=== PATIENT | female | born 1995 | race Caucasian/White ===

== ENCOUNTER 2016-10-30 | Emergency (ER) | payer OTHER | END 2016-10-30 13:30 | disposition home or self-care (01) | DX: J06.9 Acute upper respiratory infection, unspecified (principal) ==

== ENCOUNTER 2017-01-07 20:29 | Emergency (ER) | payer OTHER ==
[2017-01-07] MEDS ORDERED: ONDANSETRON ODT 4 MG TABLET TL STA (21:33)
[2017-01-07] MEDS ORDERED: PROMETHAZINE 25 MG TABLET PO STA (21:33)
[2017-01-07] MEDS ORDERED: ONDANSETRON ODT 4 MG TABLET ONE (21:35)
[2017-01-07] MEDS ORDERED: PROMETHAZINE 25 MG TABLET ONE (21:35)
[2017-01-07] MEDS ORDERED: ONDANSETRON ODT 4 MG Prepack 2 TL STA (21:59)
[2017-01-07] MEDS ORDERED: ONDANSETRON ODT 4 MG Prepack 2 TL ONE (22:04)
== END 2017-01-07 22:05 | disposition home or self-care (01) ==
DX: R11.2 Nausea with vomiting, unspecified (principal); R03.0 Elevated blood-pressure reading, without diagnosis of hypertension
CPT/HCPCS: 36415; 80053; 81003; 81025; 83690; 99283; 99284; Q0162; Q0169

== ENCOUNTER 2017-02-22 23:09 | Emergency (ER) | payer OTHER ==
[2017-02-22 23:19] VITALS: BP 135/77
--- NOTE | 2017-02-22 23:57 | ED Physician Documentation ---
History of Present Illness - Stated complaint Stated Complaint: NEED RING REMOVED - Chief complaint Chief Complaint: Ext Problem - History obtained from History obtained from: Patient - History of Present Illness Timing: Today Pain level max: 8 Pain level now: 8 Improved by: nothing Worsened by: nothing - Additonal information Additional information: Patient states that she stuck her ring on her finger that is too small and now cannot get it off. Has tried multiple things at home. Now the finger is too swollen to remove the ring. Review of Systems : denies: Now EGA Neurologic: denies: Focal weakness, Numbness PD PAST MEDICAL HISTORY - Past Medical History Cardiovascular: None Respiratory: None Neuro: None Endocrine/Autoimmune: None Psych: Depression Musculoskeletal: Fibromyalgia, Scoliosis Other Past Medical History: inflammatory arthritis - Past Surgical History Past Surgical History: No - Present Medications Home Medications: Ambulatory Orders Medication Instructions Recorded Confirmed Duloxetine HCl [Cymbalta] 1 mg PO DAILY 01/07/17 02/22/17 Etonogestrel [Nexplanon] 1 mg [id number] DAILY 01/07/17 02/22/17 Nabumetone 500 mg PO DAILY 01/07/17 02/22/17 Methocarbamol 500 mg PO .FREQ PRN 02/22/17 02/22/17 - Allergies Allergies/Adverse Reactions: Allergies Allergy/AdvReac Type Severity Reaction Status Date / Time adhesive AdvReac Rash Verified 02/22/17 23:19 - Social History Does the pt smoke?: No Smoking Status: Never smoker Does the pt drink ETOH?: No Does the pt have substance abuse?: Yes Substance Use and Type: Marijuana - Immunizations Immunizations are current?: Yes - POLST Patient has POLST: No PD ED PE NORMAL - Vitals Vital signs reviewed: Yes - General General: Alert and oriented X 3, No acute distress - Derm Derm: Warm and dry - Extremities Extremities: Other (Ring stuck on R 4th digit. Very edematous, TTP. NVI.) - Neuro Neuro: Alert and oriented X 3 Results - Vitals Vitals: Vital Signs - 24 hr 02/22/17 23:16 Temperature 36.5 C Heart Rate 86 Respiratory 16 Rate Blood Pressure 135/77 H O2 Saturation 99 Oxygen O2 Source Room air Procedures - General procedure General procedure: Ring removal - Attempted removal with tourniquet, sliding under the ring, but patient could not tolerate this. Therefore the ring was removed from the finger using a ring cutter. Tolerated well. Ring was given to the patient. PD MEDICAL DECISION MAKING - ED course Complexity details: considered differential, d/w patient ED course: 21-year-old female with a ring stuck to the right fourth digit. This was removed with a ring cutter. Tolerated well. We will have her follow-up with her doctor as needed. We will have her take the ring to a jeweler for repair. Patient counseled regarding signs and symptoms for which I believe and urgent re -evaluation would be necessary. Patient with good understanding of and agreement to plan and is comfortable going home at this time This document was made in part using voice recognition software. While efforts are made to proofread this document, sound alike and grammatical errors may occur. Departure - Departure Disposition: 01 Home, Self Care Clinical Impression: Finger swelling Condition: Good Comments: A jeweler will be able to fix your ring and resize it appropriately for you. Discharge Date/Time: 02/23/17 00:02
== END 2017-02-23 00:02 | disposition home or self-care (01) ==
LOC: ED 23:09
DX: M79.89 Other specified soft tissue disorders (principal); S60.444A External constriction of right ring finger, initial encounter; W49.04XA Ring or other jewelry causing external constriction, initial encounter
CPT/HCPCS: 99282; 99283

== ENCOUNTER 2017-04-22 15:59 | Emergency (ER) | payer OTHER ==
--- NOTE | 2017-04-22 17:41 | ED Physician Documentation ---
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 She feels it is in slightly higher position, so it moved when struck. Hurting now locally. No pain down arm nor numbness.) Where injury occurred: Work Timing - onset: Today Timing - details: Abrupt onset, Still present Worsened by: Moving, Palpating Associated symptoms: No: Weakness, Numbness, Swelling Similar symptoms before: Has not had sx before Recently seen: Not recently seen (has had the implant for 3 years I believe she said.) Review of Systems Constitutional: denies: Fever, Chills Skin: denies: Abrasion (s), Laceration (s) Neurologic: denies: Focal weakness, Numbness PD PAST MEDICAL HISTORY - Past Medical History Cardiovascular: None Respiratory: None Neuro: None Endocrine/Autoimmune: None Psych: Depression Musculoskeletal: Fibromyalgia, Scoliosis - Past Surgical History Past Surgical History: No - Present Medications Home Medications: Ambulatory Orders Medication Instructions Recorded Confirmed Duloxetine HCl [Cymbalta] 1 mg PO DAILY 01/07/17 02/22/17 Etonogestrel [Nexplanon] 1 mg [id number] DAILY 01/07/17 02/22/17 Nabumetone 500 mg PO DAILY 01/07/17 02/22/17 Methocarbamol 500 mg PO .FREQ PRN 02/22/17 02/22/17 HYDROcod/ACETAM 5/325 [[place] 5/325] 1 tab PO Q6H PRN #10 tablet 04/22/17 - Allergies Allergies/Adverse Reactions: Allergies Allergy/AdvReac Type Severity Reaction Status Date / Time adhesive AdvReac Rash Verified 04/22/17 16:09 - Social History Does the pt smoke?: No Smoking Status: Never smoker Does the pt drink ETOH?: No Does the pt have substance abuse?: Yes - Immunizations Immunizations are current?: Yes - POLST Patient has POLST: No PD ED PE NORMAL - Vitals Vital signs reviewed: Yes - General General: Alert and oriented X 3, Well developed/nourished - Derm Derm: Normal color, Warm and dry - Extremities Extremities: Other (right upper arm medial to biceps with local tenderness. The implant is palpable under the skin and feels like single unit. ) - Neuro Neuro: Alert and oriented X 3, No motor deficit, No sensory deficit Results - Vitals Vitals: Oxygen O2 Source Room air PD MEDICAL DECISION MAKING - ED course Complexity details: reviewed results (of what I could tell by U/S bedside, the implant looked to be in one piece. ), considered differential, d/w patient Departure - Departure Disposition: 01 Home, Self Care Clinical Impression: Contusion of arm, right Qualifiers: Encounter type: initial encounter Qualified Code(s): S40.021A - Contusion of right upper arm, initial encounter Condition: Stable Record reviewed to determine appropriate education?: Yes Follow-Up: Talha Garces MD [Primary Care Provider] - Prescriptions: HYDROcod/ACETAM 5/325 [[place] 5/325] 1 tab PO Q6H PRN #10 tablet PRN Reason: Pain Comments: Ibuprofen or naproxen 2-3 times a day for the next few days. Add Tylenol or hydrocodone if needed for pain. Limited use of the right arm for a few days. See if everything just comes down and does not hurt in which case the Nexplanon implant can just stay. If it continues to hurt with motion, then it may need to get removed and follow-up with your primary who inserted it. Forms: Activity restrictions Discharge Date/Time: 04/22/17 18:59
[2017-04-22] MEDS ORDERED: HYDROcod/ACETAM 5/325 MG TABLET PO STA (18:30)
[2017-04-22] MEDS ORDERED: HYDROcod/ACETAM 5/325 MG TABLET ONE (18:41)
[2017-04-22 19:01] VITALS: BP 140/88
== END 2017-04-22 18:59 | disposition home or self-care (01) ==
LOC: ED 15:59
DX: S40.021A Contusion of right upper arm, initial encounter (principal); W22.03XA Walked into furniture, initial encounter; Y93.E9 Activity, other interior property and clothing maintenance; Y99.0 Civilian activity done for income or pay; M79.7 Fibromyalgia
CPT/HCPCS: 99283; A9270

== ENCOUNTER 2017-11-03 10:55 | Emergency (ER) | payer MEDICAID, OTHER ==
[2017-11-03 11:03] VITALS: BP 135/97
[2017-11-03] MEDS ORDERED: HYDROcod/ACETAM 5/325 MG TABLET PO STA (12:10)
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
== END 2017-11-03 12:22 | disposition home or self-care (01) ==
LOC: ED 10:55
DX: M54.6 Pain in thoracic spine (principal); M54.2 Cervicalgia; M25.531 Pain in right wrist; V47.6XXA Car passenger injured in collision with fixed or stationary object in traffic accident, initial encounter; Y92.488 Other paved roadways as the place of occurrence of the external cause; R03.0 Elevated blood-pressure reading, without diagnosis of hypertension; M79.7 Fibromyalgia; M19.90 Unspecified osteoarthritis, unspecified site; F17.200 Nicotine dependence, unspecified, uncomplicated
CPT/HCPCS: 99283; A9270

== ENCOUNTER 2017-11-08 12:33 | Emergency (ER) | payer MEDICAID ==
[2017-11-08 12:48] VITALS: BP 134/95
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
[2017-11-08] MEDS ORDERED: METHOCARBAMOL 500 MG TABLET PO STA (14:15)
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
== END 2017-11-08 15:25 | disposition home or self-care (01) ==
LOC: ED 12:33
DX: S46.912A Strain of unspecified muscle, fascia and tendon at shoulder and upper arm level, left arm, initial encounter (principal); V89.2XXA Person injured in unspecified motor-vehicle accident, traffic, initial encounter; F17.200 Nicotine dependence, unspecified, uncomplicated
CPT/HCPCS: 73030; 99283; A9270

== ENCOUNTER 2018-01-02 08:00 | Outpatient (CLI) | payer MEDICAID, OTHER ==
[2018-01-02 19:10] LABS: BASOPHILS # (AUTO) 0.1 10^3/uL (0.0-0.1); BASOPHILS % (AUTO) 0.9 %; EOSINOPHILS # (AUTO) 0.4 10^3/uL (0.0-0.7); EOSINOPHILS % (AUTO) 3.9 %; LYMPHOCYTES # (AUTO) 2.4 10^3/uL (1.5-3.5); LYMPHOCYTES % (AUTO) 22.4 %; MEAN CORPUSCULAR HEMOGLOBIN 25.8 pg (27.0-31.0); MEAN CORPUSCULAR HGB CONC 33.1 g/dL (32.0-36.0); MEAN CORPUSCULAR VOLUME 78.1 fL (81.0-99.0); MEAN PLATELET VOLUME 7.7 fL (7.9-10.8); MONOCYTES # (AUTO) 0.6 10^3/uL (0.0-1.0); MONOCYTES % (AUTO) 5.6 %; NEUTROPHILS # (AUTO) 7.2 10^3/uL (1.5-6.6); NEUTROPHILS % (AUTO) 67.2 %; PLT - PLATELET COUNT 297 10^3/uL (130-450); RED BLOOD COUNT 5.03 10^6/uL (4.20-5.40); RED CELL DISTRIBUTION WIDTH 13.3 % (12.0-15.0); WHITE BLOOD COUNT 10.7 x10^3/uL (4.8-10.8)
[2018-01-02 19:44] LABS: ALBUMIN 4.4 g/dL (3.2-5.5); ALBUMIN/GLOBULIN RATIO 1.3 (1.0-2.2); ALKALINE PHOSPHATASE 67 IU/L (42-121); ALT ALANINE AMINOTRANSFERASE 18 IU/L (10-60); AST ASPARTATE AMINOTRANSFERASE 23 IU/L (10-42); BILIRUBIN,TOTAL 0.4 mg/dL (0.2-1.0); BUN - BLOOD UREA NITROGEN 8 mg/dL (6-20); CALCIUM 8.8 mg/dL (8.5-10.3); CARBON DIOXIDE - CO2 25 mmol/L (21-32); CHLORIDE 107 mmol/L (101-111); CHOLESTEROL 153 mg/dL; CREATININE 0.6 mg/dL (0.4-1.0); GFR - MDRD 126 (>89); GLUCOSE 90 mg/dL (70-100); HDL CHOLESTEROL 38 mg/dL; SODIUM 137 mmol/L (135-145); TOTAL PROTEIN 7.8 g/dL (6.7-8.2)
[2018-01-02 20:27] LABS: HB2 TOTAL 14.5 g/dL; HEMOGLOBIN A1C 0.42 g/dL; HEMOGLOBIN A1C % 4.8 % (4.6-6.2)
[2018-01-02 20:52] LABS: LDL CHOLESTEROL,DIRECT 117 mg/dL; LDLD/HDL RATIO 3.1 (<4.4)
== END 2018-01-02 08:01 | disposition home or self-care (01) ==
LOC: LAB.WCP 08:00
PROVIDERS: ATTEND Family Medicine
DX: Z00.00 Encounter for general adult medical examination without abnormal findings (principal)
CPT/HCPCS: 36415; 80053; 80061; 83036; 83721; 84443; 85025

== ENCOUNTER 2018-01-06 13:13 | Emergency (ER) | payer MEDICAID, OTHER ==
[2018-01-06 13:29] VITALS: BP 143/95
--- NOTE | 2018-01-06 13:44 | ED Physician Documentation ---
PD HPI HEENT - Stated complaint Stated Complaint: SORE THROAT - Chief complaint Chief Complaint: Heent - History obtained from History obtained from: Patient - History of Present Illness Timing - onset: Today (Sore throat today without fevers, she did have some sweats last night though. She had a mild cough for a week. She was exposed to strep at work.) Review of Systems Constitutional: reports: Sweats. denies: Fever, Chills, Fatigue Nose: denies: Rhinorrhea / runny nose, Congestion Throat: reports: Sore throat Respiratory: reports: Cough. denies: Dyspnea GI: denies: Abdominal Pain PD PAST MEDICAL HISTORY - Past Medical History Past Medical History: Yes Cardiovascular: None Respiratory: None Neuro: None Endocrine/Autoimmune: None Psych: Depression, Anxiety Musculoskeletal: Fibromyalgia, Scoliosis - Past Surgical History Past Surgical History: No - Present Medications Home Medications: Ambulatory Orders Medication Instructions Recorded Confirmed HYDROcod/ACETAM 5/325 [[place] 5/325] 1 - 2 ea PO Q6H PRN #15 tablet 11/03/17 Methocarbamol [Robaxin] 500 mg PO Q6H PRN #20 tablet 11/08/17 Ibuprofen [Motrin] 800 mg PO Q8H PRN #20 tablet 01/06/18 guaiFENesin/CODEINE [Robitussin AC] 5 - 10 ml PO Q6H PRN #120 ml 01/06/18 - Allergies Allergies/Adverse Reactions: Allergies Allergy/AdvReac Type Severity Reaction Status Date / Time adhesive AdvReac Rash Verified 11/08/17 12:48 - Social History Does the pt smoke?: Yes Smoking Status: Current every day smoker Does the pt drink ETOH?: Yes Does the pt have substance abuse?: Yes Substance Use and Type: Marijuana - Immunizations Immunizations are current?: Yes - POLST Patient has POLST: No PD ED PE NORMAL - Vitals Vital signs reviewed: Yes - General General: Alert and oriented X 3, No acute distress - HEENT HEENT: PERRL, EOMI, Ears normal, Other (Red tonsillar pillars without exudates or swelling.) - Neck Neck: Supple, no meningeal sign, No bony TTP, No adenopathy - Cardiac Cardiac: RRR, No murmur - Respiratory Respiratory: No respiratory distress, Clear bilaterally - Abdomen Abdomen: Non tender - Derm Derm: No rash - Neuro Neuro: Alert and oriented X 3, Normal speech - Psych Psych: Normal mood, Normal affect Results - Vitals Vitals: Vital Signs - 24 hr 01/06/18 13:28 Temperature 37.2 C Heart Rate 91 Respiratory 17 Rate Blood Pressure 143/95 H O2 Saturation 99 Oxygen O2 Source Room air - Labs Labs: Laboratory Tests 01/06/18 13:36 Group A Strep Rapid Negative Departure - Departure Disposition: Home, Self Care Clinical Impression: Upper respiratory infection Qualifiers: URI type: unspecified viral URI Qualified Code(s): J06.9 - Acute upper respiratory infection, unspecified Condition: Good Record reviewed to determine appropriate education?: Yes Instructions: ED URI Viral Prescriptions: guaiFENesin/CODEINE [Robitussin AC] 5 - 10 ml PO Q6H PRN #120 ml PRN Reason: Cough Ibuprofen [Motrin] 800 mg PO Q8H PRN #20 tablet PRN Reason: PAIN &/OR FEVER Comments: Recheck with your doctor in 1 week if not better. Return if worse or if new symptoms develop. Your blood pressure was elevated today on check into the emergency department. This does not mean that you have hypertension, it is a common phenomenon to come to the emergency department and have elevated blood pressure. I recommend that you see your primary care physician within the week to have it rechecked when you are feeling better.
[2018-01-06] MEDS ORDERED: DEXAMETHASONE 10 MG/ML VIAL PO STA (13:59)
== END 2018-01-06 14:12 | disposition home or self-care (01) ==
LOC: ED 13:13
DX: J06.9 Acute upper respiratory infection, unspecified (principal); R03.0 Elevated blood-pressure reading, without diagnosis of hypertension; F17.200 Nicotine dependence, unspecified, uncomplicated
CPT/HCPCS: 87070; 87430; 99283

== ENCOUNTER 2018-02-09 10:01 | Emergency (ER) | payer MEDICAID ==
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
[2018-02-09] MEDS ORDERED: LIDOCAINE PATCH 5% TOP SCH (11:00)
[2018-02-09] MEDS ORDERED: LIDOCAINE PATCH 5% TOP STA (11:03)
[2018-02-09 11:42] VITALS: BP 118/80
== END 2018-02-09 11:51 | disposition home or self-care (01) ==
LOC: ED 10:01
DX: S46.812A Strain of other muscles, fascia and tendons at shoulder and upper arm level, left arm, initial encounter (principal); V89.2XXA Person injured in unspecified motor-vehicle accident, traffic, initial encounter
CPT/HCPCS: 99283; A9270

== ENCOUNTER 2018-02-19 12:24 | Emergency (ER) | payer OTHER, MEDICAID ==
[2018-02-19] MEDS ORDERED: KETOROLAC 60 MG/2 ML VIAL IM STA (12:45)
[2018-02-19] MEDS ORDERED: DEXAMETHASONE 10 MG/ML VIAL PO STA (12:46)
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
[2018-02-19 13:12] VITALS: BP 127/106
--- NOTE | 2018-02-19 13:14 | XRAY Preliminary Report ---
Exam: XR CLAVICLE LT IMPRESSION: Negative left clavicle. [facility] SITE ID: [id number]
--- NOTE | 2018-02-19 13:14 | XRAY Report ---
EXAM: LEFT CLAVICLE RADIOGRAPHY EXAM DATE: 02/19/2018 01:03 PM. CLINICAL HISTORY: L sternoclavicular joint pain. COMPARISON: None. TECHNIQUE: 2 views. FINDINGS: Bones: Normal. No fracture or bone lesion. Joints: The acromioclavicular and sternoclavicular joints are normal. No subluxation. Soft Tissues: Normal. No soft tissue swelling. IMPRESSION: Negative left clavicle. [facility] Referring Provider Line: [phone] SITE ID: [id number]
== END 2018-02-19 13:20 | disposition home or self-care (01) ==
LOC: ED 12:24
DX: S43.62XA Sprain of left sternoclavicular joint, initial encounter (principal); V89.2XXA Person injured in unspecified motor-vehicle accident, traffic, initial encounter; Y92.410 Unspecified street and highway as the place of occurrence of the external cause; M06.9 Rheumatoid arthritis, unspecified
CPT/HCPCS: 96372; 99283

== ENCOUNTER 2018-03-05 15:47 | Emergency (ER) | payer MEDICAID ==
[2018-03-05 16:00] VITALS: BP 144/88
--- NOTE | 2018-03-05 17:00 | ED Physician Documentation ---
PD HPI UPPER EXT INJURY - Stated complaint Stated Complaint: SHOULDER PX - Chief complaint Chief Complaint: Ext Problem - History obtained from History obtained from: Patient - History of Present Illness Location: Left, Clavicle, Shoulder Type of injury: Twist (see prior reports in ED) Timing - details: Abrupt onset, Still present (has had pain at left shoudler/ clavicle for weeks and has been seen few times. Has appt with Ortho in 2 days. Dx of sternoclavicular strain vs shoulder strain. She says she got up from lying and felt it hurting more and then has a pop feeling and hurts more than it was. Pain at mid clavicle and to left side of neck.) Worsened by: Moving Associated symptoms: No: Weakness, Numbness Recently seen: Emergency Dept Review of Systems Constitutional: denies: Fever Nose: denies: Rhinorrhea / runny nose, Congestion Throat: denies: Sore throat Respiratory: denies: Cough Skin: denies: Rash, Lesions PD PAST MEDICAL HISTORY - Past Medical History Past Medical History: Yes Cardiovascular: None Respiratory: None Endocrine/Autoimmune: None Psych: Depression, Anxiety Musculoskeletal: Osteoarthritis, Fibromyalgia, Scoliosis - Past Surgical History Past Surgical History: No - Present Medications Home Medications: Ambulatory Orders Medication Instructions Recorded Confirmed Citalopram [CeleXA] 1 tab PO DAILY 02/09/18 02/09/18 Meloxicam [Mobic] 15 mg PO DAILY PRN #20 tablet 02/19/18 Buspirone HCl [Buspirone HCl] 03/05/18 Dexamethasone [Decadron] 4 mg PO DAILY #5 tablet 03/05/18 Diclofenac Sodium [Voltaren] 5 gm TP BID #100 gel..gram. 03/05/18 - Allergies Allergies/Adverse Reactions: Allergies Allergy/AdvReac Type Severity Reaction Status Date / Time adhesive AdvReac Rash Verified 03/05/18 16:00 - Social History Does the pt smoke?: No Smoking Status: Never smoker Does the pt drink ETOH?: Yes Does the pt have substance abuse?: Yes - Immunizations Immunizations are current?: Yes - POLST Patient has POLST: No PD ED PE NORMAL - Vitals Vital signs reviewed: Yes - General General: Alert and oriented X 3, Well developed/nourished, Other (appears uncomfortable. ) - Neck Neck: Supple, no meningeal sign, No adenopathy, Other (left side muscles with some tenderness lower SCM near clavicle. No redness. Mid to medial clavicle is tender without deformity. The medial clavicle does not feel dislocated. It does not have movement felt with left shoulder anterior movement against resistance, but does hurt in mid to medial clavicle to do that. AC joint not tender. ) - Derm Derm: Normal color, Warm and dry, No rash - Neuro Neuro: No motor deficit, No sensory deficit Results - Vitals Vitals: Oxygen O2 Source Room air PD MEDICAL DECISION MAKING - ED course Complexity details: reviewed old records (seen for this a few times. Has ortho appt this coming week. ), considered differential (has had pain at clavicle and felt a pop feeling after waking up and it is hurting more. Concerned it might have dislocated. ), d/w patient - Sepsis Event Vital Signs: Oxygen O2 Source Room air Departure - Departure Disposition: Home, Self Care Clinical Impression: Pain of left clavicle Sternoclavicular (joint) (ligament) sprain Qualifiers: Encounter type: initial encounter Laterality: left Qualified Code(s): S43.62XA - Sprain of left sternoclavicular joint, initial encounter Condition: Stable Record reviewed to determine appropriate education?: Yes Follow-Up: Jovan Parekh MD [Primary Care Provider] - Prescriptions: Dexamethasone [Decadron] 4 mg PO DAILY #5 tablet Diclofenac Sodium [Voltaren] 5 gm TP BID #100 gel..gram. Comments: Decadron daily for 5 days. Try topical diclofenac gel to the area twice daily. Follow-up with orthopedics on Tuesday as planned. Continue the sling periodically with gentle range of motion several times a day to prevent stiffening. Forms: Activity restrictions Discharge Date/Time: 03/05/18 17:41
[2018-03-05] MEDS ORDERED: HYDROcod/ACETAM 5/325 MG TABLET PO STA (17:30)
[2018-03-05] MEDS ORDERED: NAPROXEN 250 MG TABLET PO STA (17:30)
[2018-03-05] MEDS ORDERED: HYDROcod/ACET 5/325 Prepack 4 PO STA (17:30)
[2018-03-05] MEDS ORDERED: DEXAMETHASONE 10 MG/ML VIAL PO STA (17:30)
== END 2018-03-05 17:41 | disposition home or self-care (01) ==
LOC: ED 15:47
DX: M25.512 Pain in left shoulder (principal); S43.62XA Sprain of left sternoclavicular joint, initial encounter; X58.XXXA Exposure to other specified factors, initial encounter
CPT/HCPCS: 99283; A9270

== ENCOUNTER 2018-04-13 11:11 | Outpatient (CLI) | payer MEDICAID ==
[2018-04-13] MEDS ORDERED: IOTHALAMATE MEGLUMINE 50 ML VIAL ONE (11:24)
[2018-04-13] MEDS ORDERED: GADOPENTETATE DIMEGLUMINE 5 ML VIAL IVP ONE ×2 (11:25→16:45)
--- NOTE | 2018-04-13 15:50 | XRAY Report ---
Procedure Date: 04/13/2018 Accession Number: [id number] / [id number] Procedure: FL - Arthrogram Needle Placement CPT Code: FULL RESULT: EXAM: Arthrogram Needle Placement DATE: 04/13/2018 12:22 PM CLINICAL HISTORY: SHOULDER JOINT PAIN, LEFT TECHNIQUE: Live fluoroscopy for joint injection. COMPARISON: None FINDINGS: Written informed consent was obtained from the patient. A timeout was performed. The patient was placed on the fluoroscopy table in the supine position with the shoulder in external rotation. The upper inner quadrant of the shoulder was marked with a Ryanne clamp under fluoroscopy. The shoulder was sterilely prepped and draped. Following skin lidocaine anesthesia, a 22-gauge needle was advanced into the joint with positioning confirmed under fluoroscopy with contrast injection. A mixture of 5 mL lidocaine, 5 mL Conray x-ray contrast and 0.1 mL of gadolinium based contrast was then injected into the joint space. Intra-articular injection was confirmed by fluoroscopy. The needle was removed. A Band-Aid was applied. The patient appeared to tolerate the procedure well. IMPRESSION: Left shoulder joint injection.
[2018-04-13] MEDS ORDERED: BUFFERED LIDOCAINE 10 ML SYRINGE IU ONE (16:45)
[2018-04-13] MEDS ORDERED: IOTHALAMATE MEGLUMINE 50 ML VIAL IVP ONE (16:45)
--- NOTE | 2018-04-13 16:47 | MRI Report ---
Procedure Date: 04/13/2018 Accession Number: [id number] / [id number] Procedure: MRI - Arthrogram Shoulder LT CPT Code: FULL RESULT: EXAM: LEFT SHOULDER MRI ARTHROGRAM WITH CONTRAST EXAM DATE: 04/13/2018 12:57 PM. CLINICAL HISTORY: Severe left shoulder pain. COMPARISON: SHOULDER 3 VIEW LT 11/08/2017. TECHNIQUE: Multiplanar, multisequence T1-weighted and fluid-sensitive sequences of the shoulder after an arthrographic injection of dilute gadolinium, dictated under a separate exam. Other: None. FINDINGS: Acromioclavicular Region: The acromion is type II. The acromioclavicular joint is unremarkable. The coracoacromial and coracoclavicular ligaments are intact. There is no contrast or fluid in the subacromial/subdeltoid bursa. Glenohumeral Region: No subluxation. No loose bodies. The articular cartilage is unremarkable. The glenohumeral ligaments and joint capsule are unremarkable. Bone Marrow: No fracture, marrow edema or bone lesions. Labrum: The labrum is unremarkable. Biceps Tendon: The long head of the biceps tendon and biceps clarence are intact. Musculature/Rotator Cuff: The subscapularis, supraspinatus, infraspinatus, and teres minor tendons are intact. No edema or fatty atrophy. Other: The subcutaneous tissues are unremarkable. IMPRESSION: No MRI abnormalities in the shoulder. [facility] MUSCULOSKELETAL RADIOLOGY SECTION
== END 2018-04-13 11:12 | disposition home or self-care (01) ==
LOC: DI 11:11
PROVIDERS: ATTEND Orthopaedic Surgery
DX: M25.512 Pain in left shoulder (principal)
CPT/HCPCS: 23350; 73222; 77002; Q9961

== ENCOUNTER 2018-05-16 20:57 | Emergency (ER) | payer MEDICAID, OTHER ==
[2018-05-16] MEDS ORDERED: ALBUTEROL NEB 2.5 MG/3 ML INH STA (21:16)
--- NOTE | 2018-05-16 21:55 | XRAY Report ---
Procedure Date: 05/16/2018 Accession Number: [id number] / [id number] Procedure: XR - Chest 1 View X-Ray CPT Code: 75508 FULL RESULT: EXAM: CHEST RADIOGRAPHY. EXAM DATE: 05/16/2018 09:31 PM. CLINICAL HISTORY: Short of breath. COMPARISON: 10/21/2014. TECHNIQUE: 1 view. FINDINGS: Lungs/Pleura: No focal opacities evident. No pleural effusion. No pneumothorax. Mediastinum: Within exam limitations, the cardiomediastinal contour is normal. Other: None. IMPRESSION: Normal single view chest. [facility]
[2018-05-16] MEDS ORDERED: predniSONE 20 MG TABLET PO STA (22:10)
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
[2018-05-16 22:31] VITALS: BP 138/97
== END 2018-05-16 22:32 | disposition home or self-care (01) ==
LOC: ED 20:57
DX: J98.9 Respiratory disorder, unspecified (principal)
CPT/HCPCS: 71045; 94640; 99283; J7512

== ENCOUNTER 2019-02-05 13:39 | Emergency (ER) | payer MEDICAID ==
[2019-02-05 13:56] VITALS: BP 135/96
--- NOTE | 2019-02-05 14:04 | ED Physician Documentation ---
PD HPI BACK PAIN - Stated complaint Stated Complaint: UPPER BACK PX - Chief complaint Chief Complaint: Back Pain - History obtained from History obtained from: Patient - History of Present Illness Timing - onset: Today Timing - details: Abrupt onset, Still present Location: Upper (upper thoracic area) Quality: Pain, Sharp Associated symptoms: Other (no dyspnea). No: Fever, Weakness, Numbness Worsened by: Movement, Lifting, Other (not worse with breathing) Contributing factors: Lifting. No: Trauma Review of Systems Constitutional: denies: Fever, Chills Nose: denies: Rhinorrhea / runny nose, Congestion Throat: denies: Sore throat Cardiac: denies: Palpitations Respiratory: denies: Cough GI: denies: Abdominal Pain, Nausea, Vomiting Skin: denies: Rash, Lesions PD PAST MEDICAL HISTORY - Past Medical History Cardiovascular: None Respiratory: None Endocrine/Autoimmune: None Psych: Depression, Anxiety Musculoskeletal: Osteoarthritis, Fibromyalgia, Scoliosis - Past Surgical History Past Surgical History: No - Present Medications Home Medications: Ambulatory Orders Medication Instructions Recorded Confirmed Citalopram [CeleXA] 1 tab PO DAILY 02/09/18 02/09/18 Meloxicam [Mobic] 15 mg PO DAILY PRN #20 tablet 02/19/18 Buspirone HCl 03/05/18 Dexamethasone [Decadron] 4 mg PO DAILY #5 tablet 03/05/18 Diclofenac Sodium [Voltaren] 5 gm TP BID #100 gel..gram. 03/05/18 Albuterol Sulfate [Proventil Hfa 1 - 2 puffs INH Q4H PRN #1 inhaler 05/16/18 Inhaler] RX: predniSONE [Prednisone] 40 mg PO DAILY 5 Days tablet 05/16/18 Dexamethasone [Decadron] 4 mg PO DAILY #5 tablet 02/05/19 Hydrocodone/Acetaminophen [[place] 1 each PO Q6H PRN #15 tablet 02/05/19 5-325 Tablet] Methocarbamol [Robaxin] 500 mg PO Q6H PRN #25 tablet 02/05/19 RX: Naproxen 375 mg PO BID #20 tablet 02/05/19 - Allergies Allergies/Adverse Reactions: Allergies Allergy/AdvReac Type Severity Reaction Status Date / Time adhesive AdvReac Rash Verified 02/05/19 13:56 - Social History Does the pt smoke?: No Smoking Status: Never smoker Does the pt drink ETOH?: Yes Does the pt have substance abuse?: Yes - Immunizations Immunizations are current?: Yes - POLST Patient has POLST: No PD ED PE NORMAL - Vitals Vital signs reviewed: Yes - General General: Alert and oriented X 3, No acute distress, Well developed/nourished - Neck Neck: Supple, no meningeal sign, No bony TTP, No adenopathy - Cardiac Cardiac: RRR, No murmur - Respiratory Respiratory: Clear bilaterally - Abdomen Abdomen: Soft, Non tender - Back Back: No CVA TTP, Other (tender midline around upper thoracic area. No redness, sores, rash. ) - Derm Derm: Normal color, Warm and dry, No rash - Neuro Neuro: Alert and oriented X 3, No motor deficit, No sensory deficit Results - Vitals Vitals: Vital Signs - 24 hr 02/05/19 02/05/19 13:50 14:10 Temperature 36.8 C Heart Rate 70 Respiratory 14 18 Rate Blood Pressure 135/96 H O2 Saturation 100 Oxygen O2 Source Room air - Rads (name of study) thoracic spine Radiology: Prelim report reviewed (normal spine), See rad report PD MEDICAL DECISION MAKING - ED course Complexity details: reviewed results, considered differential (seems muscular pain. ), d/w patient Departure - Departure Disposition: 01 Home, Self Care Clinical Impression: Acute thoracic back pain Qualifiers: Back pain laterality: midline Qualified Code(s): M54.6 - Pain in thoracic spine Condition: Stable Record reviewed to determine appropriate education?: Yes Instructions: ED Neck Back Pain General Follow-Up: Rosalie Velásquez PA [Primary Care Provider] - Prescriptions: Dexamethasone [Decadron] 4 mg PO DAILY #5 tablet Hydrocodone/Acetaminophen [[place] 5-325 Tablet] 1 each PO Q6H PRN #15 tablet PRN Reason: Pain Methocarbamol [Robaxin] 500 mg PO Q6H PRN #25 tablet PRN Reason: Spasms RX: Naproxen 375 mg PO BID #20 tablet Comments: Your x-ray appears normal without any obvious problem of the spine. However this is really just reflects the bones and without tell us about the discs muscles and ligaments. I would treated with anti-inflammatories of both nonsteroidal such as naproxen twice daily with food and steroidal Decadron daily for 5 days. To this he could add Robaxin still as a muscle relaxant for spasms and stiffness. Add hydrocodone if needed for pain. Recheck if not improved over the next several days to week. They should have decreasing pain over the next few days but may still hurt some up to a week or so. Avoid heavy lifting push pull or vigorous activity. Discharge Date/Time: 02/05/19 15:45
[2019-02-05] MEDS ORDERED: KETOROLAC 30 MG/ML VIAL IM STA (14:20)
[2019-02-05] MEDS ORDERED: CHERRY SYRUP 10 ML UDC PO ONE (14:20)
[2019-02-05] MEDS ORDERED: METHOCARBAMOL 500 MG TABLET PO STA (14:20)
[2019-02-05] MEDS ORDERED: HYDROcod/ACETAM 5/325 MG TABLET PO STA (14:20)
[2019-02-05] MEDS ORDERED: DEXAMETHASONE 10 MG/ML VIAL PO STA (14:20)
--- NOTE | 2019-02-05 15:04 | XRAY Report ---
Reason: upper thoracic pain abrupt yesterday Procedure Date: 02/05/2019 Accession Number: [id number] / [id number] Procedure: XR - Thoracic Spine 2 View CPT Code: FULL RESULT: EXAM: THORACIC SPINE RADIOGRAPHY. EXAM DATE: 02/05/2019 02:53 PM. CLINICAL HISTORY: Upper thoracic pain abrupt yesterday. COMPARISON: CHEST 1 VIEW 05/16/2018 9:20 PM. TECHNIQUE: 2 views. FINDINGS: Alignment: Normal. No spondylolisthesis or scoliosis. Bones: No fractures or bone lesions. Disks: Normal. Disk heights are maintained. Soft Tissues: Normal. The visualized lungs and cardiomediastinal silhouette are normal. IMPRESSION: Normal thoracic spine radiography. [facility]
== END 2019-02-05 15:45 | disposition home or self-care (01) ==
LOC: ED 13:39
DX: M54.6 Pain in thoracic spine (principal)
CPT/HCPCS: 72070; 96372; 99283; A9270

== ENCOUNTER 2019-02-13 09:54 | Outpatient (CLI) | payer MEDICAID ==
--- NOTE | 2019-02-13 13:12 | XRAY Report ---
Reason: NECK PAIN,CHRONIC Procedure Date: 02/13/2019 Accession Number: [id number] / [id number] Procedure: WCP - Cervical Spine 2 View CPT Code: FULL RESULT: EXAM: CERVICAL SPINE RADIOGRAPHY EXAM DATE: 02/13/2019 10:10 AM. CLINICAL HISTORY: NECK PAIN,CHRONIC. COMPARISONS: None. TECHNIQUE: 3 views. FINDINGS: Alignment: Normal. No spondylolisthesis or scoliosis. Bones: The cervical vertebral bodies and posterior elements are well visualized from the skull base through C7-T1. No fractures or bone lesions. Disks: Normal. Disk heights are maintained. Facets: No degenerative disease. Soft Tissues: Normal. No prevertebral soft tissue swelling. The visualized lung apices are clear. IMPRESSION: Normal cervical spine radiography. [facility]
== END 2019-02-13 09:55 | disposition home or self-care (01) ==
LOC: DI.WCP 09:54
PROVIDERS: ATTEND Physician Assistant
DX: M54.2 Cervicalgia (principal)
CPT/HCPCS: 72040

== ENCOUNTER 2019-02-13 09:56 | Outpatient (CLI) | payer MEDICAID ==
--- NOTE | 2019-02-13 13:22 | XRAY Report ---
Reason: LUMBAR RADICULOPATHY Procedure Date: 02/13/2019 Accession Number: [id number] / [id number] Procedure: WCP - Lumbar Spine 2 View CPT Code: FULL RESULT: EXAM: LUMBOSACRAL SPINE RADIOGRAPHY EXAM DATE: 02/13/2019 10:10 AM. CLINICAL HISTORY: Lumbar radiculopathy. COMPARISONS: None. TECHNIQUE: 2 views. FINDINGS: Alignment: There is a levoconvex mild thoracolumbar scoliosis centered about T12-L1. Bones: Five ebn-nid-zrnjqib lumbar vertebral bodies are present. No fractures or bone lesions. Disks: Normal. Disk heights are maintained. Facets: Mild facet arthropathy at L5. Sacroiliac Joints: Unremarkable. Soft Tissues: Normal. The visualized bowel gas pattern is normal. IMPRESSION: Scoliosis and mild facet arthropathy at L5. [facility]
== END 2019-02-13 09:57 | disposition home or self-care (01) ==
LOC: DI.WCP 09:56
PROVIDERS: ATTEND Physician Assistant
DX: M47.816 Spondylosis without myelopathy or radiculopathy, lumbar region (principal); M41.85 Other forms of scoliosis, thoracolumbar region
CPT/HCPCS: 72040; 72100

== ENCOUNTER 2019-03-30 12:45 | Outpatient (CLI) | payer MEDICAID ==
--- NOTE | 2019-03-30 13:44 | MRI Report ---
Reason: NUMBNESS,ARM,MIGRAINE Procedure Date: 03/30/2019 Accession Number: [id number] / [id number] Procedure: MRI - Brain W/O CPT Code: FULL RESULT: EXAM: MRI BRAIN WITHOUT CONTRAST EXAM DATE: 03/30/2019 01:31 PM. CLINICAL HISTORY: 23-year-old presenting with migraine and bilateral arm numbness. Evaluate for intracranial pathology. COMPARISON: None. TECHNIQUE: Multiplanar, multisequence T1-weighted and fluid-sensitive MR sequences of the brain were performed. Sequences optimized for routine evaluation. Other: None. IV Contrast: None. FINDINGS: Brain Volume: Normal for age. Parenchyma/Dura: No mass, acute infarct or hemorrhage. No white matter lesions identified. Ventricles/Cisterns: No hydrocephalus. No abnormal extra-axial fluid collection or hemorrhage. Orbits: Symmetric and unremarkable. Sella [place]: The pituitary gland, cavernous sinuses, suprasellar cistern and optic chiasm are unremarkable. IAC: Symmetric and unremarkable. Vasculature: Normal signal flow void is seen in the major arterial structures at the skull base. Sinuses: No acute appearing sinus disease. Bones: No focal pathologic appearing marrow signal changes. Other: None. IMPRESSION: 1. No definite acute intracranial pathology seen; specifically, no acute infarct, acute intracranial hemorrhage, mass, hydrocephalus, or midline shift. 2. No definite white matter lesion seen. [facility]
== END 2019-03-30 12:46 | disposition home or self-care (01) ==
LOC: DI 12:45
PROVIDERS: ATTEND Physician Assistant
DX: G43.909 Migraine, unspecified, not intractable, without status migrainosus (principal); R20.0 Anesthesia of skin
CPT/HCPCS: 70551

== ENCOUNTER 2019-06-13 08:00 | Outpatient (CLI) | payer MEDICAID ==
[2019-06-13 12:13] LABS: BASOPHILS # (AUTO) 0.1 10^3/uL (0.0-0.1); BASOPHILS % (AUTO) 1.4 %; EOSINOPHILS # (AUTO) 1.6 10^3/uL (0.0-0.7); EOSINOPHILS % (AUTO) 18.5 %; HGB - HEMOGLOBIN 14.1 g/dL (12.0-16.0); LYMPHOCYTES # (AUTO) 2.4 10^3/uL (1.5-3.5); LYMPHOCYTES % (AUTO) 27.7 %; MEAN CORPUSCULAR HEMOGLOBIN 26.8 pg (27.0-31.0); MEAN CORPUSCULAR HGB CONC 32.6 g/dL (32.0-36.0); MEAN CORPUSCULAR VOLUME 82.2 fL (81.0-99.0); MONOCYTES # (AUTO) 0.6 10^3/uL (0.0-1.0); MONOCYTES % (AUTO) 7.2 %; NEUTROPHILS # (AUTO) 3.9 10^3/uL (1.5-6.6); PLT - PLATELET COUNT 350 10^3/uL (130-450); RED BLOOD COUNT 5.27 10^6/uL (4.20-5.40); RED CELL DISTRIBUTION WIDTH 12.2 % (12.0-15.0); WHITE BLOOD COUNT 8.6 x10^3/uL (4.8-10.8)
[2019-06-13 12:48] LABS: PLATELET ESTIMATE, MANUAL NORMAL (130-450,000) (NORMAL); PLATELET MORPHOLOGY NORMAL APPEARANCE (NORMAL); RBC MORPHOLOGY (MULTIPLE) NORMAL APPEARANCE (NORMAL)
[2019-06-13 13:00] LABS: ALBUMIN 4.4 g/dL (3.2-5.5); ALBUMIN/GLOBULIN RATIO 1.2 (1.0-2.2); BILIRUBIN,TOTAL 0.3 mg/dL (0.2-1.0); CALCIUM 9.2 mg/dL (8.5-10.3); CREATININE 0.7 mg/dL (0.4-1.0); TOTAL PROTEIN 8.1 g/dL (6.7-8.2)
== END 2019-06-13 08:01 | disposition home or self-care (01) ==
LOC: LAB.WCP 08:00
PROVIDERS: ATTEND Physician Assistant
DX: R53.83 Other fatigue (principal); E55.9 Vitamin D deficiency, unspecified
CPT/HCPCS: 36415; 80053; 82306; 83540; 84443; 84466; 85025

== ENCOUNTER 2019-06-15 15:32 | Outpatient (CLI) | payer MEDICAID ==
--- NOTE | 2019-06-18 09:53 | Ultrasound Report ---
Reason: DYSMENORRHEA Procedure Date: 06/15/2019 Accession Number: [id number] / [id number] Procedure: US - Pelvic w/Transvaginal CPT Code: FULL RESULT: EXAM: PELVIC ULTRASOUND EXAM DATE: 06/15/2019 04:30 PM. CLINICAL HISTORY: DYSMENORRHEA. COMPARISON: None. TECHNIQUE: Realtime transabdominal pelvic scan performed to identify the uterus and adnexa and as an overview of other pelvic structures, followed by transvaginal scan to provide greater detail of the uterus and adnexa, with static image documentation. FINDINGS: Uterus: 6.8 x 2.8 x 3.5 cm, volume 34 cc. Anteverted position. Normal overall size and echotexture. Masses: None. Endometrium: 6 mm. Normal. Cervix: Endocervical fluid Right Ovary: 3.4 x 2.9 x 2.5 cm, volume 12.5 cc. Normal echotexture and blood flow. Left Ovary: 2.6 x 2.4 x 2.3 cm, volume 7.5 cc. Normal echotexture and blood flow. Free Fluid: None. Other: None. IMPRESSION: Normal pelvic ultrasound. [facility]
== END 2019-06-15 15:33 | disposition home or self-care (01) ==
LOC: DI 15:32
PROVIDERS: ATTEND Physician Assistant
DX: N94.6 Dysmenorrhea, unspecified (principal)
CPT/HCPCS: 76830; 76856

== ENCOUNTER 2019-06-29 08:00 | Outpatient (CLI) | payer MEDICAID ==
[2019-06-29 21:26] LABS: CANDIDA GROUP DNA NEGATIVE (NEGATIVE); CANDIDA KRUSEI DNA NEGATIVE (NEGATIVE); TRICHOMONAS VAGINALIS DNA NEGATIVE (NEGATIVE)
== END 2019-06-29 23:59 | disposition home or self-care (01) ==
LOC: LAB.R 08:00
PROVIDERS: ATTEND Obstetrics & Gynecology
DX: N89.8 Other specified noninflammatory disorders of vagina (principal)
CPT/HCPCS: 87661; 87801

== ENCOUNTER 2019-07-24 08:00 | Outpatient (CLI) | payer MEDICAID ==
[2019-07-24 18:25] LABS: BASOPHILS # (AUTO) 0.1 10^3/uL (0.0-0.1); BASOPHILS % (AUTO) 0.8 %; EOSINOPHILS # (AUTO) 0.7 10^3/uL (0.0-0.7); EOSINOPHILS % (AUTO) 8.5 %; HGB - HEMOGLOBIN 13.4 g/dL (12.0-16.0); LYMPHOCYTES # (AUTO) 2.7 10^3/uL (1.5-3.5); LYMPHOCYTES % (AUTO) 32.8 %; MEAN CORPUSCULAR HEMOGLOBIN 26.1 pg (27.0-31.0); MEAN CORPUSCULAR HGB CONC 32.1 g/dL (32.0-36.0); MEAN CORPUSCULAR VOLUME 81.3 fL (81.0-99.0); MEAN PLATELET VOLUME 9.1 fL (7.9-10.8); MONOCYTES # (AUTO) 0.6 10^3/uL (0.0-1.0); MONOCYTES % (AUTO) 6.7 %; NEUTROPHILS # (AUTO) 4.3 10^3/uL (1.5-6.6); PLT - PLATELET COUNT 357 10^3/uL (130-450); RED BLOOD COUNT 5.14 10^6/uL (4.20-5.40); RED CELL DISTRIBUTION WIDTH 13.1 % (12.0-15.0); WHITE BLOOD COUNT 8.4 x10^3/uL (4.8-10.8)
[2019-07-24 19:22] LABS: ALBUMIN 4.5 g/dL (3.2-5.5); ALBUMIN/GLOBULIN RATIO 1.3 (1.0-2.2); BILIRUBIN,TOTAL 0.4 mg/dL (0.2-1.0); CALCIUM 9.8 mg/dL (8.5-10.3); CREATININE 0.6 mg/dL (0.4-1.0)
[2019-07-26 18:56] LABS: ANA SCREEN NEGATIVE (NEGATIVE)
== END 2019-07-24 08:01 | disposition home or self-care (01) ==
LOC: LAB.WCP 08:00
PROVIDERS: ATTEND Physician Assistant
DX: M02.30 Reiter's disease, unspecified site (principal); R53.83 Other fatigue
CPT/HCPCS: 36415; 80053; 84443; 85025; 85651; 86038

== ENCOUNTER 2019-09-17 13:25 | Outpatient (CLI) | payer MEDICAID ==
--- NOTE | 2019-09-18 12:32 | XRAY Report ---
Reason: HIP PAIN Procedure Date: 09/17/2019 Accession Number: [id number] / [id number] Procedure: XR - Hips 2V BILAT CPT Code: Final Report FULL RESULT: EXAM: BILATERAL HIP RADIOGRAPHY EXAM DATE: 09/17/2019 01:39 PM. CLINICAL HISTORY: Hip pain. COMPARISON: None. TECHNIQUE: 2 views each. FINDINGS: Bones: Normal. No fractures or bone lesion. Right Hip: Minimal marginal osteophytosis. No dislocation. The hip joint space is preserved. Left Hip: Normal. No dislocation. The hip joint space is preserved. Soft Tissues: Normal. No soft tissue swelling. IMPRESSION: Normal study. [facility]
== END 2019-09-17 13:26 | disposition home or self-care (01) ==
LOC: DI 13:25
PROVIDERS: ATTEND Physician Assistant
DX: M25.551 Pain in right hip (principal); M25.552 Pain in left hip
CPT/HCPCS: 73521

== ENCOUNTER 2019-09-29 10:16 | Emergency (ER) | payer MEDICAID ==
[2019-09-29] MEDS ORDERED: methocarbamoL 500 MG TABLET PO STA (10:40)
[2019-09-29] MEDS ORDERED: IBUPROFEN 600 MG TABLET PO STA (10:40)
[2019-09-29] MEDS ORDERED: ACETAMINOPHEN 325 MG TABLET PO STA (10:40)
--- NOTE | 2019-09-29 10:43 | ED Physician Documentation ---
History of Present Illness - Stated complaint Stated Complaint: CP - Chief complaint Chief Complaint: Cardiac - Additonal information Additional information: This is a 24-year-old female with a history of anxiety, PTSD, fibromyalgia, presents with right-sided chest pain. Patient was watching TV she twisted to the right and she had some pain on the right side of her chest. She states is worse with pressure and with taking a deep breath. She states the pain is sharp. She denies any history of blood clots, no recent immobilizations or surgeries, no Known history of coagulopathy, no leg swelling or redness, no recent long travel. She denies shortness of breath but does like her breathing is more shallow to avoid pain. She has not had any hemoptysis. No fever or cough. No cardiac history. Patient does use the NuvaRing, she is not on any other hormonal medications. Review of Systems Constitutional: denies: Fever Cardiac: reports: Chest pain / pressure Respiratory: denies: Dyspnea GI: denies: Abdominal Pain Skin: denies: Rash PD PAST MEDICAL HISTORY - Past Medical History Cardiovascular: None Respiratory: None Endocrine/Autoimmune: None Psych: Depression, Anxiety Musculoskeletal: Osteoarthritis, Fibromyalgia, Scoliosis - Past Surgical History Past Surgical History: No - Present Medications Home Medications: Ambulatory Orders Medication Instructions Recorded Confirmed Citalopram [CeleXA] 1 tab PO DAILY 02/09/18 02/09/18 Meloxicam [Mobic] 15 mg PO DAILY PRN #20 tablet 02/19/18 Buspirone HCl 03/05/18 Diclofenac Sodium [Voltaren] 5 gm TP BID #100 gel..gram. 03/05/18 dexAMETHasone [Decadron] 4 mg PO DAILY #5 tablet 03/05/18 Albuterol Sulfate [Proventil Hfa 1 - 2 puffs INH Q4H PRN #1 inhaler 05/16/18 Inhaler] predniSONE [Prednisone] 40 mg PO DAILY 5 Days tablet 05/16/18 Hydrocodone/Acetaminophen [[place] 1 each PO Q6H PRN #15 tablet 02/05/19 5-325 Tablet] Naproxen 375 mg PO BID #20 tablet 02/05/19 dexAMETHasone [Decadron] 4 mg PO DAILY #5 tablet 02/05/19 methocarbamoL [Robaxin] 500 mg PO Q6H PRN #25 tablet 02/05/19 methocarbamoL [Methocarbamol] 500 mg PO TID PRN #15 tablet 09/29/19 - Allergies Allergies/Adverse Reactions: Allergies Allergy/AdvReac Type Severity Reaction Status Date / Time adhesive AdvReac Rash Verified 09/29/19 10:19 - Social History Does the pt smoke?: No Smoking Status: Never smoker Does the pt drink ETOH?: Yes Does the pt have substance abuse?: Yes - Immunizations Immunizations are current?: Yes - POLST Patient has POLST: No PD ED PE NORMAL - Vitals Vital signs reviewed: Yes - General General: Alert and oriented X 3, No acute distress - HEENT HEENT: PERRL - Neck Neck: Supple, no meningeal sign - Cardiac Cardiac: RRR, No murmur - Respiratory Respiratory: No respiratory distress, Clear bilaterally, Other (There is some tenderness palpation over the right anterior chest wall, chest wall appears atraumatic and there is no bruising or rashes) - Abdomen Abdomen: Non distended - Derm Derm: Warm and dry - Extremities Extremities: No deformity, No tenderness to palpate, No edema, No calf tenderness / cord - Neuro Neuro: Alert and oriented X 3 - Psych Psych: Normal mood, Normal affect Results - Vitals Vitals: Oxygen O2 Source Room air - EKG (time done) 10:27 Other comments: Other comments (Rate 65, rhythm sinus, No ST segment elevation or depression, Qtc within normal limits. No prior for comparison.) PD MEDICAL DECISION MAKING - ED course ED course: Pt presents with reproducible chest pain after twisting, which appears to be musculoskeletal in nature. EKG shows no signs of ischemia or dysrhtymia or right heart strain, and her age and risk factors make ACS exceedingly unlikely. Pt has no hx immobilization, no leg swelling or DVT, no tachycardia, normal O2 saturation, no history of blood clots or cancer, and her clinical picture is inconsistent with PE. CXR shows no acute abnormality. I discussed the results, return precuations, PCP follow up, and care for her chest discomfort and pt was discharged. Departure - Departure Disposition: 01 Home, Self Care Clinical Impression: Chest pain Qualifiers: Chest pain type: unspecified Qualified Code(s): R07.9 - Chest pain, unspecified Condition: Good Instructions: ED Chest Pain Atypical Unkn Cause Follow-Up: Rosalie Velásquez PA [Primary Care Provider] - (Follow-up within 1 week unless symptoms are resolved) Prescriptions: methocarbamoL [Methocarbamol] 500 mg PO TID PRN #15 tablet PRN Reason: Pain Comments: You were seen today for some pain in your chest. Your x-ray Did not show any obvious abnormalities. Think this is likely related to a strain of your chest wall. However if you have any worsening such as new or worsening chest pain, coughing up blood, swelling in your legs, shortness of breath, or fever, return to the emergency department for recheck. You may take Tylenol and ibuprofen. You may try the methocarbamol if needed, but do not combine this with other medications that can be sedating. Discharge Date/Time: 09/29/19 12:23
--- NOTE | 2019-09-29 11:41 | XRAY Report ---
Reason: R chest pain after twisting Procedure Date: 09/29/2019 Accession Number: [id number] / [id number] Procedure: XR - Chest 2 View X-Ray CPT Code: 72245 Final Report FULL RESULT: EXAM: CHEST RADIOGRAPHY EXAM DATE: 09/29/2019 10:55 AM. CLINICAL HISTORY: Right chest pain. COMPARISON: THORACIC SPINE 2 VIEW 02/05/2019 2:38 PM. TECHNIQUE: 2 views. FINDINGS: Lungs/Pleura: No focal opacities evident. No pleural effusion. No pneumothorax. Normal volumes. Mediastinum: Heart and mediastinal contours are unremarkable. Other: None. IMPRESSION: Normal 2-view chest radiography. [facility]
[2019-09-29 12:24] VITALS: BP 131/82
== END 2019-09-29 12:23 | disposition home or self-care (01) ==
LOC: ED 10:16
DX: R07.9 Chest pain, unspecified (principal); M79.7 Fibromyalgia
CPT/HCPCS: 71046; 93005; 99283; 99284; A9270

== ENCOUNTER 2019-11-30 16:55 | Outpatient (CLI) | payer MEDICAID ==
--- NOTE | 2019-11-30 14:22 | XRAY Report ---
Reason: ATYPICAL CHEST PAIN Procedure Date: 11/30/2019 Accession Number: [id number] / [id number] Procedure: WCP - Chest 2 View X-Ray CPT Code: 55960 Final Report FULL RESULT: EXAM: CHEST RADIOGRAPHY 2 VIEWS EXAM DATE: 11/30/2019. CLINICAL HISTORY: Atypical chest pain. Persistent anterior right lower chest pain. COMPARISON: PA and lateral chest on 09/29/2019. TECHNIQUE: PA and lateral views. FINDINGS: Lungs/Pleura: Normal vasculature. The lungs are clear. No pleural fluid or pneumothorax. Mediastinum: Normal cardiac and mediastinal contours. Bones: Normal. IMPRESSION: Normal 2-view chest radiography. No change from 09/29/2019. [facility]
== END 2019-11-30 23:59 | disposition home or self-care (01) ==
LOC: DI.WCP 16:55
PROVIDERS: ATTEND Physician Assistant
DX: R07.89 Other chest pain (principal)
CPT/HCPCS: 71046

== ENCOUNTER 2019-12-04 13:02 | Outpatient (CLI) | payer MEDICAID | END 2019-12-04 13:03 | disposition home or self-care (01) | LOC: DI 13:02 | PROVIDERS: ATTEND Physician Assistant | DX: R07.89 Other chest pain (principal) | CPT/HCPCS: 93306 ==

== ENCOUNTER 2020-01-03 10:29 | Outpatient (CLI) | payer MEDICAID ==
--- NOTE | 2020-01-04 07:41 | MRI Report ---
Reason: RT HIP PAIN Procedure Date: 01/03/2020 Accession Number: [id number] / [id number] Procedure: MRI - Hip RT W/O CPT Code: Final Report FULL RESULT: EXAM: RIGHT HIP MRI WITHOUT CONTRAST EXAM DATE: 01/03/2020 11:29 AM. CLINICAL HISTORY: Chronic lateral right hip pain for 6 years. COMPARISON: 09/17/2019 radiograph. TECHNIQUE: Multiplanar, multisequence T1-weighted and fluid-sensitive, small tlamt-fa-hxel sequences of the hip and large daths-kk-opdo sequences of the pelvis without contrast. Other: None. FINDINGS: Bones: No fractures or subluxations. No marrow edema or bone lesions. Right Hip: No acetabular retroversion. Femoral head/neck offset is within normal limits. No effusion or loose bodies. The articular cartilage is intact. The labrum is unremarkable on this nonarthrographic study. The ligamentum teres is intact. Other Joints: The visualized lumbar spine, sacroiliac joints, symphysis pubis, and contralateral hip are unremarkable. Musculature: No edema or fatty atrophy. Minimal right gluteus medius tendinosis is present. The visualized hamstring tendons are normal. The ischiofemoral space is normal. Pelvic Cavity: The visualized viscera are unremarkable. No lymphadenopathy. No free fluid in the pelvis. Other: The visualized sciatic nerves are unremarkable. No bursitis. The subcutaneous tissues are unremarkable. IMPRESSION: Minimal right gluteus medius tendinosis. [facility]
== END 2020-01-03 10:30 | disposition home or self-care (01) ==
LOC: DI 10:29
PROVIDERS: ATTEND Physician Assistant
DX: M67.951 Unspecified disorder of synovium and tendon, right thigh (principal)

== ENCOUNTER 2020-06-01 12:49 | Emergency (ER) | payer MEDICAID ==
[2020-06-01] MEDS ORDERED: BUFFERED LIDOCAINE 10 ML SYRINGE IU ONE (13:26)
--- NOTE | 2020-06-01 14:42 | ED Physician Documentation ---
PD HPI SKIN - Stated complaint Stated Complaint: DOG BITE - Chief complaint Chief Complaint: Wound - Additional information Additional information: Patient comes emergency department complaining of a dog bite that she sustained while walking her dog this afternoon. She states her neighbor's dog jumped over the fence and tried to attack her dog and during that time bit her arm. Patient complains of laceration to her right forearm as well as a few puncture wounds. She is up-to-date on immunizations, including tetanus. Neighbor stated that their dog was immunized and "does not have rabies" no other complaints at this time. Review of Systems Ten Systems: 10 systems reviewed and negative Constitutional: reports: Reviewed and negative Eyes: reports: Reviewed and negative Ears: reports: Reviewed and negative Nose: reports: Reviewed and negative Throat: reports: Reviewed and negative Cardiac: reports: Reviewed and negative Respiratory: reports: Reviewed and negative GI: reports: Reviewed and negative : reports: Reviewed and negative Skin: reports: Laceration (s) Musculoskeletal: reports: Reviewed and negative Neurologic: reports: Reviewed and negative Psychiatric: reports: Reviewed and negative Endocrine: reports: Reviewed and negative Immunocompromised: reports: Reviewed and negative PD PAST MEDICAL HISTORY - Past Medical History Past Medical History: Yes Cardiovascular: None Respiratory: None Neuro: None Endocrine/Autoimmune: None GI: None [employer] TECHNICIAN: None : None HEENT: None Psych: Depression, Anxiety Musculoskeletal: Osteoarthritis, Fibromyalgia, Scoliosis Derm: None - Past Surgical History Past Surgical History: No - Present Medications Home Medications: Ambulatory Orders Medication Instructions Recorded Confirmed Citalopram [CeleXA] 1 tab PO DAILY 02/09/18 02/09/18 Meloxicam [Mobic] 15 mg PO DAILY PRN #20 tablet 02/19/18 Buspirone HCl 03/05/18 Diclofenac Sodium [Voltaren] 5 gm TP BID #100 gel..gram. 03/05/18 dexAMETHasone [Decadron] 4 mg PO DAILY #5 tablet 03/05/18 Albuterol Sulfate [Proventil Hfa 1 - 2 puffs INH Q4H PRN #1 inhaler 05/16/18 Inhaler] predniSONE [Prednisone] 40 mg PO DAILY 5 Days tablet 05/16/18 Hydrocodone/Acetaminophen [[place] 1 each PO Q6H PRN #15 tablet 02/05/19 5-325 Tablet] Naproxen 375 mg PO BID #20 tablet 02/05/19 dexAMETHasone [Decadron] 4 mg PO DAILY #5 tablet 02/05/19 methocarbamoL [Robaxin] 500 mg PO Q6H PRN #25 tablet 02/05/19 methocarbamoL [Methocarbamol] 500 mg PO TID PRN #15 tablet 09/29/19 - Allergies Allergies/Adverse Reactions: Allergies Allergy/AdvReac Type Severity Reaction Status Date / Time adhesive AdvReac Rash Verified 09/29/19 10:19 - Social History Does the pt smoke?: No Smoking Status: Never smoker Does the pt drink ETOH?: Yes Does the pt have substance abuse?: Yes - Immunizations Immunizations are current?: Yes - POLST Patient has POLST: No PD ED PE NORMAL - Vitals Vital signs reviewed: Yes - General General: Alert and oriented X 3, No acute distress (Mildly anxious but otherwise no apparent distress) - HEENT HEENT: Atraumatic, PERRL, EOMI, Moist mucous membranes - Neck Neck: Supple, no meningeal sign - Cardiac Cardiac: Strong equal pulses - Respiratory Respiratory: No respiratory distress - Derm Derm: Warm and dry, Other (2 cm laceration the patient's mid right forearm on the flexor surface. Bleeding controlled. No foreign body. Laceration is linear. 5 mm laceration noted also on right forearm flexor surface. No foreign body or bleeding. 2 small skin tears less than 3 mm each on middle and ring fingers) - Extremities Extremities: No deformity - Neuro Neuro: Alert and oriented X 3 - Psych Psych: Normal mood, Normal affect Results - Vitals Vitals: Vital Signs - 24 hr 06/01/20 06/01/20 13:02 14:50 Temperature 36.5 C Heart Rate 68 88 Respiratory 22 16 Rate Blood Pressure 151/116 H 144/95 H O2 Saturation 100 99 Oxygen O2 Source Room air Procedures - Laceration (location) R forearm Length in cm: 4.5 Wound type: Linear, Into subcut fat, Clean Neurovascular status: Sensory intact, Motor intact, Vascular intact Tendon involvement: No: Tendon Injury Anesthesia: Lidocaine 1% Wound Preparation: Hibiclens, Irrigated copiously NS, Wound explored, To the base. No: FB identified Skin layer closure: Nylon, Interrupted, Size #-0 - enter number (4.0), Sutures - enter # (5) Other: Patient tolerated well, No complications, Neurovascular intact PD MEDICAL DECISION MAKING - ED course Complexity details: considered differential, d/w patient ED course: Wounds repaired as noted above. Patient was given instructions for suture removal in 7 days and we discussed the usual indications for return to the emergency department, including signs of wound infection. Departure - Departure Disposition: 01 Home, Self Care Clinical Impression: Animal bite with open wound, Laceration Condition: Stable Instructions: ED Bite Animal General, ED Laceration All Comments: Please keep your wound clean and generally dry. You may let water and soap run over the wound, but do not rub, scrub, or immerse the wound until sutures are removed. This is to avoid infection. You should have the sutures removed by medical professional in 7 days. If you begin to develop redness spreading away from the wound, or if your wound splits open and drains pus, you will need to have it rechecked. Forms: Activity restrictions Discharge Date/Time: 06/01/20 14:50
[2020-06-01 14:50] VITALS: BP 144/95
== END 2020-06-01 14:50 | disposition home or self-care (01) ==
LOC: ED 12:49
DX: S51.851A Open bite of right forearm, initial encounter (principal); S61.252A Open bite of right middle finger without damage to nail, initial encounter; S61.254A Open bite of right ring finger without damage to nail, initial encounter; W54.0XXA Bitten by dog, initial encounter; Y93.K1 Activity, walking an animal
CPT/HCPCS: 12002; 99282

== ENCOUNTER 2020-06-08 14:40 | Emergency (ER) | payer MEDICAID ==
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
[2020-06-08 15:12] VITALS: BP 140/82
== END 2020-06-08 15:12 | disposition home or self-care (01) ==
LOC: ED 14:40
DX: S51.811D Laceration without foreign body of right forearm, subsequent encounter (principal); X58.XXXD Exposure to other specified factors, subsequent encounter
CPT/HCPCS: 99282; 99283

== ENCOUNTER 2020-09-30 21:18 | Outpatient (CLI) | payer MEDICAID ==
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
== END 2020-09-30 21:19 | disposition home or self-care (01) ==
LOC: COV 21:18
PROVIDERS: ATTEND Family Medicine
DX: Z20.822 Contact with and (suspected) exposure to COVID-19 (principal)

== ENCOUNTER 2023-11-24 15:26 | Emergency (ER) | payer MEDICAID ==
[2023-11-24 16:01] LABS: BASOPHILS # (AUTO) 0.1 10^3/uL (0.0-0.1); BASOPHILS % (AUTO) 0.7 %; EOSINOPHILS # (AUTO) 0.6 10^3/uL (0.0-0.7); HCT - HEMATOCRIT 40.4 % (37.0-47.0); HGB - HEMOGLOBIN 13.1 g/dL (12.0-16.0); LYMPHOCYTES # (AUTO) 2.8 10^3/uL (1.5-3.5); LYMPHOCYTES % (AUTO) 28.6 %; MEAN CORPUSCULAR HEMOGLOBIN 26.8 pg (27.0-31.0); MEAN CORPUSCULAR HGB CONC 32.4 g/dL (32.0-36.0); MEAN CORPUSCULAR VOLUME 82.8 fL (81.0-99.0); MEAN PLATELET VOLUME 8.8 fL (7.9-10.8); MONOCYTES # (AUTO) 0.6 10^3/uL (0.0-1.0); MONOCYTES % (AUTO) 6.1 %; NEUTROPHILS # (AUTO) 5.8 10^3/uL (1.5-6.6); NEUTROPHILS % (AUTO) 58.4 %; PLT - PLATELET COUNT 305 10^3/uL (130-450); RED BLOOD COUNT 4.88 10^6/uL (4.20-5.40); RED CELL DISTRIBUTION WIDTH 12.4 % (12.0-15.0); WHITE BLOOD COUNT 9.9 x10^3/uL (4.8-10.8)
[2023-11-24 16:14] LABS: ALBUMIN 4.9 g/dL (3.2-5.5); ALBUMIN/GLOBULIN RATIO 1.5 (1.0-2.2); BILIRUBIN,TOTAL 0.6 mg/dL (0.2-1.0); CALCIUM 10.2 mg/dL (8.5-10.3); CREATININE 0.6 mg/dL (0.6-1.3); POTASSIUM 3.5 mmol/L (3.5-4.5); TOTAL PROTEIN 8.1 g/dL (6.4-8.9)
[2023-11-24 16:34] LABS: BILIRUBIN,URINE NEGATIVE (NEGATIVE); GLUCOSE, URINE (UA) NEGATIVE (NEGATIVE); KETONES,URINE (UA) NEGATIVE (NEGATIVE); LEUKOCYTE ESTERASE, URINE NEGATIVE (NEGATIVE); NITRITE,URINE NEGATIVE (NEGATIVE); OCCULT BLOOD,URINE NEGATIVE (NEGATIVE); PROTEIN,URINE NEGATIVE (NEGATIVE); UROBILINOGEN,URINE 0.2 (NORMAL) E.U./dL (NORMAL)
[2023-11-24 16:39] LABS: CLARITY,URINE CLEAR (CLEAR)
[2023-11-24] MEDS: HYDROmorphone 0.5 MG/0.5 ML SYRINGE IVP STA ×2 (17:23→21:19)
--- NOTE | 2023-11-24 20:48 | Ultrasound Report ---
PROCEDURE: Abdomen Limited INDICATIONS: RUQ pain TECHNIQUE: Real-time focused scanning was performed of the abdomen, with image documentation. COMPARISONS: None. FINDINGS: Liver: Liver is normal in size and homogeneous in echotexture. Gallbladder: Unremarkable. Biliary ducts: Intrahepatic bile ducts are non-dilated. Extrahepatic bile duct caliber measures 2.9 mm. Normal is 6-7 mm or less in diameter, or 10 mm or less post-cholecystectomy. Pancreas: Visualized portions of the pancreas are sonographically normal. Pancreatic tail is not wel l-visualized secondary to overlying bowel gas. Right kidney: Normal in size and echotexture. Right kidney measures 9.7 cm long. No hydronephrosis o r nephrolithiasis. No solid masses. No complex renal cystic lesions which require follow-up. IVC: Intrahepatic inferior vena cava is patent. Miscellaneous: No free abdominal fluid. IMPRESSION: No acute findings to explain patient's symptoms. The gallbladder is normal in appearance. Reviewed by: Jason Pierre MD on 11/24/2023 8:47 PM PST Approved by: Jason Pierre MD on 11/24/2023 8:47 PM PST Station ID: [id number]
--- NOTE | 2023-11-24 20:57 | CT Report ---
PROCEDURE: Abdomen WO INDICATIONS: RUQ pain, scan up to chest CONTRAST: None. TECHNIQUE: After the administration of oral contrast, 5 mm thick sections acquired from the diaphragms to the il iac crests. 5 mm coronal and sagittal reformats were then performed. For radiation dose reduction, the following was used: automated exposure control, adjustment of mA and/or kV according to patient size. COMPARISON: CT abdomen/pelvis 10/21/2014 FINDINGS: Image quality: Excellent. Lung bases: Lung bases are clear. Heart size is normal. Solid organs: Liver and spleen are normal in size. Gallbladder appears normal. Pancreas is normal in contours. No adrenal nodules. Both kidneys are normal in size, without hydronephrosis or nephrol ithiasis. Peritoneum and bowel: Bowel loops demonstrate normal wall thickness and caliber. Appendix is not wel l visualized in the pelvis, but no focal inflammatory changes are seen. No free fluid or air. Nodes and vessels: No retroperitoneal or mesenteric adenopathy by size criteria. Aorta and inferior vena cava are normal in size. Bones: No suspicious bony lesions. No vertebral body compression fractures. Miscellaneous: No ventral hernias. IMPRESSION: No acute abnormality is seen in the abdomen or pelvis. Reviewed by: Jacinto Rapp MD on 11/24/2023 8:56 PM PST Approved by: Jacinto Rapp MD on 11/24/2023 8:56 PM PST Station ID: [id number]
--- NOTE | 2023-11-24 21:04 | ED Physician Documentation ---
PD HPI ABD PAIN - Stated complaint Stated Complaint: ABD PX - Chief complaint Chief Complaint: Abd Pain - Additional information Additional information: 28-year-old female presents emergency department for right upper quadrant pain. Patient reports that she has a history of fibromyalgia. She does not take any medications for this at home she was just taken off her Lyrica because she feels like she was having a hard time on Lyrica trying to manage her fibromyalgia.. Patient reports she has a right upper quadrant tenderness and pain that started this morning around 11 AM. She says that she recently thought that this was due to anxiety but the pain has persisted. She says that it feels like a nerve pain as sharp shooting pain in her right upper quadrant. No nausea vomiting diarrhea no fevers or chills. PD PAST MEDICAL HISTORY - Past Medical History Cardiovascular: None Respiratory: None Neuro: None Endocrine/Autoimmune: None GI: None [employer]: None : None HEENT: None Psych: Depression, Anxiety Musculoskeletal: Osteoarthritis, Fibromyalgia, Scoliosis Derm: None - Past Surgical History Past Surgical History: No - Present Medications Home Medications: Ambulatory Orders Medication Instructions Recorded Confirmed Citalopram [CeleXA] 1 tab PO DAILY 02/09/18 02/09/18 Meloxicam [Mobic] 15 mg PO DAILY PRN #20 tablet 02/19/18 Buspirone HCl 03/05/18 Diclofenac Sodium [Voltaren] 5 gm TP BID #100 gel..gram. 03/05/18 dexAMETHasone [Decadron] 4 mg PO DAILY #5 tablet 03/05/18 Albuterol Sulfate [Proventil Hfa 1 - 2 puffs INH Q4H PRN #1 inhaler 05/16/18 Inhaler] predniSONE [Prednisone] 40 mg PO DAILY 5 Days tablet 05/16/18 Hydrocodone/Acetaminophen [[place] 1 each PO Q6H PRN #15 tablet 02/05/19 5-325 Tablet] Naproxen 375 mg PO BID #20 tablet 02/05/19 dexAMETHasone [Decadron] 4 mg PO DAILY #5 tablet 02/05/19 methocarbamoL [Robaxin] 500 mg PO Q6H PRN #25 tablet 02/05/19 methocarbamoL [Methocarbamol] 500 mg PO TID PRN #15 tablet 09/29/19 Diphenhydramine HCl [Itch Relief] 1 applic TP Q6H PRN #15 gel..ml. 06/08/20 Mupirocin 1 applic TP TID #15 g 06/08/20 - Allergies Allergies/Adverse Reactions: Allergies Allergy/AdvReac Type Severity Reaction Status Date / Time adhesive AdvReac Rash Verified 11/24/23 15:38 - Social History Does the pt smoke?: No Smoking Status: Never smoker Does the pt drink ETOH?: Yes Does the pt have substance abuse?: Yes - Immunizations Immunizations are current?: Yes - POLST Patient has POLST: No PD ED PE NORMAL - Vitals Vital signs reviewed: Yes - General General: Alert and oriented X 3, Well developed/nourished - Cardiac Cardiac: RRR, No murmur, Strong equal pulses - Respiratory Respiratory: No respiratory distress, Clear bilaterally - Abdomen Abdomen: Normal bowel sounds, Soft, No organomegaly (RUQ tenderness) - Back Back: No CVA TTP - Derm Derm: Normal color, Warm and dry, No rash Results - Vitals Vitals: Vital Signs - 24 hr 11/24/23 11/24/23 11/24/23 15:28 17:38 19:00 Temperature 36.7 C Heart Rate 92 78 65 Respiratory 17 15 18 Rate Blood Pressure 148/91 H 138/100 H O2 Saturation 98 98 99 11/24/23 11/24/23 21:00 21:06 Temperature Heart Rate 85 85 Respiratory 16 18 Rate Blood Pressure 129/87 H 129/87 H O2 Saturation 98 98 Oxygen O2 Source Room air - Labs Labs: Laboratory Tests 11/24/23 11/24/23 11/24/23 15:25 15:52 15:52 WBC 9.9 RBC 4.88 Hgb 13.1 Hct 40.4 MCV 82.8 MCH 26.8 L MCHC 32.4 RDW 12.4 Plt Count 305 MPV 8.8 Neut # (Auto) 5.8 Lymph # (Auto) 2.8 [place] # (Auto) 0.6 Eos # (Auto) 0.6 Baso # (Auto) 0.1 Absolute Nucleated RBC 0.00 Nucleated RBC % 0.0 Sodium 137 Potassium 3.5 Chloride 102 Carbon Dioxide 27 Anion Gap 8.0 BUN 8 Creatinine 0.6 Estimated GFR (MDRD) 120 Glucose 88 Calcium 10.2 Total Bilirubin 0.6 AST 18 ALT 12 Alkaline Phosphatase 61 Total Protein 8.1 Albumin 4.9 Globulin 3.2 Albumin/Globulin Ratio 1.5 Lipase 19 Urine Color YELLOW Urine Clarity CLEAR Urine pH 7.0 Ur Specific [place] 1.010 Urine Protein NEGATIVE Urine Glucose (UA) NEGATIVE Urine Ketones NEGATIVE Urine Occult Blood NEGATIVE Urine Nitrite NEGATIVE Urine Bilirubin NEGATIVE Urine Urobilinogen 0.2 (NORMAL) Ur Leukocyte Esterase NEGATIVE Ur Microscopic Review NOT INDICATED Urine Culture Comments NOT INDICATED - Rads (name of study) Right upper quadrant ultrasound Relevant Findings:: Final report received, EMP independent interpretation of test, Other (Normal-appearing gallbladder) CT abdomen without Relevant Findings:: Final report received, EMP independent interpretation of test, Other (No acute abnormalities within the abdomen or pelvis.) PD Medical Decision Making - ED course ED course: 28-year-old female presents emergency department for right upper quadrant pain.Labs are complete and overall unremarkable urinalysis does not show any signs symptoms of infection. I was originally concern about her gallbladder lipase is within normal limits and right upper quadrant ultrasound does not reveal any acute abnormalities or findings. Patient was still convinced that there was something going on and something wrong with her and wanted to pursue CT imaging. CT of her abdomen was complete without as we are having a critical contrast shortage. There is no acute abnormalities visualized on the CT scan of her abdomen pelvis as well. Pain is well-controlled with 2 IV pushes of hydromorphone. I am prescribing a short course of short-acting opioid pain medication for this patient. I have reviewed the patients TENSILE TESTER and no concerning findings were noted. I have discussed that the opioids are for short term therapy only, and will not be refilled from the ED. Patient given strict ER return precautions I am not able to find any reason as to what is causing her right upper quadrant pain could be related to fibromyalgia flare. Patient says that she is currently trying to be worked up for disability for her fibromyalgia. Patient told to follow-up primary care provider for further evaluation and given strict ER return precautions. Departure - Departure Disposition: 01 Home, Self Care Clinical Impression: Abdominal pain Qualifiers: Abdominal location: right upper quadrant Qualified Code(s): R10.11 - Right upper quadrant pain Condition: Good Instructions: Abdominal Pain Comments: Thank you for trusting us with your care we have completed an ultrasound and a CT scan of your abdomen we are not seeing any acute abnormalities or findings at this time. Please follow-up with your primary care provider about this ER visit. Please come back to the emergency department for starting develop any fevers or chills, worsening abdominal pain, nausea vomiting diarrhea or any other concerning symptoms. I am prescribing a short course of short-acting opioid pain medication for this patient. I have reviewed the patients TENSILE TESTER and no concerning findings were noted. I have discussed that the opioids are for short term therapy only, and will not be refilled from the ED. Forms: PCP List Discharge Date/Time: 11/24/23 21:45
[2023-11-24 21:06] VITALS: BP 129/87; O2SAT 98
[2023-11-24] MEDS: oxyCODONE/ACET 5/325 Prepack 4 PO STA (21:15)
[2023-11-24] MEDS: MAG HYDROX/AL HYDROX/SIMETH 30 ML UDC PO STA (21:18)
== END 2023-11-24 21:45 | disposition home or self-care (01) ==
LOC: ED 15:26
DX: R10.11 Right upper quadrant pain (principal)
CPT/HCPCS: 36415; 74150; 76705; 80053; 81003; 83690; 85025; 96374; 96376; 99284; A9270; J1170; 81001; 87086

== ENCOUNTER 2024-03-26 09:30 | Outpatient (CLI) | payer MEDICAID | END 2024-03-26 09:45 | disposition home or self-care (01) | LOC: LAB.N 09:30 | PROVIDERS: ATTEND Physician Assistant Medical | DX: N39.0 Urinary tract infection, site not specified (principal) | CPT/HCPCS: 87086 ==